=== PATIENT | male | born 1935 | race Caucasian/White ===

== ENCOUNTER 2022-06-19 22:04 | Inpatient (IN) ==
[2022-06-19 23:08] LABS: Urine Appearance Clear; Urine Color Yellow; Urine Specific Gravity 1.025 (1.005-1.030); Urine pH 5.5 (5.0-9.0)
[2022-06-19 23:09] LABS: Urine Bilirubin Negative (Negative); Urine Blood Trace (Lysed) (Negative); Urine Glucose Negative (Negative); Urine Ketones Negative (Negative); Urine Nitrite Negative (Negative); Urine Protein Negative (Negative); Urine Urobilinogen 1.0 (Negative) (Negative)
[2022-06-19 23:26] LABS: Urine Bacteria Absent (Absent); Urine Red Blood Cell 1+(3-5/hpf) (Absent); Urine Squamous Epithelial Cell Present (Absent); Urine White Blood Cell 3+(>20/hpf) (Absent)
[2022-06-20 00:08] LABS: ABS Basophils 0.1 10^3/ul (0-0.2); ABS Eosinophils 0.3 10^3/ul (0-0.6); ABS Lymphocytes 1.7 10^3/ul (1.0-4.8); ABS Monocytes 0.8 10^3/ul (0-0.8); ABS Neutrophils 7.2 10^3/ul (1.5-7.7); Eosinophil % 3.1 %; Hematocrit 42 % (42-52); Hemoglobin 13.9 g/dL (14.0-18.0); Lymphocyte % 16.5 %; Mean Corpuscular HGB Conc 33 g/dL (31-36); Mean Corpuscular Hemoglobin 29 pg (27-31); Mean Corpuscular Volume 89 fL (80-94); Nucleated Red Blood Cells % 0.1; Platelet Count 309 10^3/uL (150-450); Red Blood Count 4.76 10^6 /uL (4.18-5.48); Red Cell Distribution Width 15 % (10-15)
[2022-06-20 00:36] LABS: Albumin 3.7 g/dL (3.2-5.2); Albumin/Globulin Ratio 1.5 (1-3); C Reactive Protein 18.68 mg/L (<8.01); Calcium 10.3 mg/dL (8.6-10.3); Globulin 2.4 g/dL (2-4); Potassium 4.4 mmol/L (3.5-5.0); Total Bilirubin 0.7 mg/dL (0.2-1.0); Total Protein 6.1 g/dL (6.4-8.9); eGFR CKD-EPI 47.6 (>60)
[2022-06-20 02:37] LABS: Magnesium 1.9 mg/dL (1.9-2.7)
[2022-06-20 02:53] LABS: TSH Ultra Thyroid Stim Horm 1.65 mcIU/mL (0.34-5.60)
[2022-06-20] MEDS ORDERED: Lactated Ringers 1000 ml BAG 1,000 ML IV ONE (03:14)
[2022-06-20] MEDS ORDERED: Cyanocobalamin INJ 1,000 MCG/ML VIAL 1 ML VIAL IM ONE (03:21)
[2022-06-20] MEDS: cefTRIAXone 1 gm/50 mL D5W 1 GM/50 ML BAG IV SCH (03:32)
[2022-06-20] MEDS ORDERED: Dextrose 50% Syringe 50 ml 25 GM/50 ML SYRINGE IV PUSH PRN (03:36)
[2022-06-20] MEDS: Enoxaparin 40 MG/0.4 ML SYR SUBCUT SCH (03:55)
[2022-06-20] MEDS ORDERED: Lactated Ringers 1000 ml BAG 1,000 ML IV SCH (04:00)
[2022-06-20] MEDS: Cholecalciferol (VIT D3) 1,000 unit TAB PO SCH (09:12)
[2022-06-20 09:15] LABS: Blood Urea Nitrogen 17 mg/dL (6-24); CO2 Carbon Dioxide 23 mmol/L (22-32); Calcium 9.6 mg/dL (8.6-10.3); Chloride 105 mmol/L (101-111); Glucose 111 mg/dL (70-100); Sodium 136 mmol/L (135-145); eGFR CKD-EPI 60.5 (>60)
[2022-06-20 09:21] LABS: Anion Gap 8 mmol/L (2-11)
[2022-06-20 09:25] LABS: PSA Screening Total 0.423 ng/mL (0-4.000)
[2022-06-20 10:32] LABS: Magnesium 1.7 mg/dL (1.9-2.7); Potassium Redraw 4.5 mmol/L (3.5-5.0)
[2022-06-20] MEDS: Senna TAB 8.6 mg TAB PO SCH ×2 (11:29→21:10)
[2022-06-20] MEDS: Polyethylene Glycol 3350 17 GM PACKET PO SCH (21:10)
[2022-06-21] MEDS: cefTRIAXone 1 gm/50 mL D5W 1 GM/50 ML BAG IV SCH (05:10)
[2022-06-21] MEDS: Enoxaparin 40 MG/0.4 ML SYR SUBCUT SCH (06:04)
[2022-06-21 06:27] LABS: ABS Basophils 0.1 10^3/ul (0-0.2); ABS Eosinophils 0.2 10^3/ul (0-0.6); ABS Lymphocytes 1.6 10^3/ul (1.0-4.8); ABS Monocytes 0.7 10^3/ul (0-0.8); ABS Neutrophils 7.1 10^3/ul (1.5-7.7); Eosinophil % 2.2 %; Hematocrit 41 % (42-52); Hemoglobin 14.2 g/dL (14.0-18.0); Lymphocyte % 16.7 %; Mean Corpuscular HGB Conc 35 g/dL (31-36); Mean Corpuscular Hemoglobin 31 pg (27-31); Mean Corpuscular Volume 88 fL (80-94); Mean Platelet Volume 7.3 fL (7.4-10.4); Platelet Count 280 10^3/uL (150-450); Red Cell Distribution Width 14 % (10-15); White Blood Count 9.7 10^3/uL (3.5-10.8)
[2022-06-21 06:59] LABS: Calcium 10.2 mg/dL (8.6-10.3); Potassium 4.5 mmol/L (3.5-5.0); eGFR CKD-EPI 64.4 (>60)
[2022-06-21] MEDS: Cholecalciferol (VIT D3) 1,000 unit TAB PO SCH (08:46)
[2022-06-21] MEDS: Senna TAB 8.6 mg TAB PO SCH ×2 (08:46→21:19)
[2022-06-21] MEDS: Polyethylene Glycol 3350 17 GM PACKET PO SCH ×2 (08:47→21:20)
[2022-06-22 05:22] LABS: ABS Basophils 0.1 10^3/ul (0-0.2); ABS Eosinophils 0.3 10^3/ul (0-0.6); ABS Lymphocytes 1.6 10^3/ul (1.0-4.8); ABS Monocytes 0.7 10^3/ul (0-0.8); Eosinophil % 3.3 %; Hematocrit 41 % (42-52); Hemoglobin 14.2 g/dL (14.0-18.0); Lymphocyte % 18.8 %; Mean Corpuscular HGB Conc 35 g/dL (31-36); Mean Corpuscular Hemoglobin 31 pg (27-31); Mean Corpuscular Volume 89 fL (80-94); Mean Platelet Volume 7.8 fL (7.4-10.4); Platelet Count 250 10^3/uL (150-450); Red Blood Count 4.62 10^6 /uL (4.18-5.48); Red Cell Distribution Width 15 % (10-15); White Blood Count 8.7 10^3/uL (3.5-10.8)
[2022-06-22] MEDS: Enoxaparin 40 MG/0.4 ML SYR SUBCUT SCH (05:34)
[2022-06-22] MEDS: cefTRIAXone 1 gm/50 mL D5W 1 GM/50 ML BAG IV SCH (05:35)
[2022-06-22 05:42] LABS: Calcium 10.3 mg/dL (8.6-10.3); eGFR CKD-EPI 61.1 (>60)
[2022-06-22 05:52] LABS: Potassium 4.4 mmol/L (3.5-5.0)
[2022-06-22] MEDS: Polyethylene Glycol 3350 17 GM PACKET PO SCH ×2 (07:59→20:56)
[2022-06-22] MEDS: Senna TAB 8.6 mg TAB PO SCH ×2 (08:00→20:55)
[2022-06-22] MEDS: Cholecalciferol (VIT D3) 1,000 unit TAB PO SCH (08:00)
[2022-06-23 05:56] LABS: ABS Basophils 0.1 10^3/ul (0-0.2); ABS Eosinophils 0.3 10^3/ul (0-0.6); ABS Lymphocytes 1.6 10^3/ul (1.0-4.8); ABS Monocytes 0.7 10^3/ul (0-0.8); ABS Neutrophils 5.6 10^3/ul (1.5-7.7); Eosinophil % 3.2 %; Hematocrit 40 % (42-52); Hemoglobin 13.9 g/dL (14.0-18.0); Mean Corpuscular HGB Conc 35 g/dL (31-36); Mean Corpuscular Hemoglobin 31 pg (27-31); Mean Corpuscular Volume 89 fL (80-94); Mean Platelet Volume 7.3 fL (7.4-10.4); Platelet Count 283 10^3/uL (150-450); Red Blood Count 4.51 10^6 /uL (4.18-5.48); Red Cell Distribution Width 14 % (10-15); White Blood Count 8.2 10^3/uL (3.5-10.8)
[2022-06-23 06:10] LABS: Calcium 10.3 mg/dL (8.6-10.3); Potassium 4.1 mmol/L (3.5-5.0); eGFR CKD-EPI 57.5 (>60)
[2022-06-23] MEDS: Enoxaparin 40 MG/0.4 ML SYR SUBCUT SCH (06:16)
[2022-06-23] MEDS: cefTRIAXone 1 gm/50 mL D5W 1 GM/50 ML BAG IV SCH (06:16)
[2022-06-23] MEDS: Cholecalciferol (VIT D3) 1,000 unit TAB PO SCH (07:44)
[2022-06-23] MEDS: Polyethylene Glycol 3350 17 GM PACKET PO SCH (07:44)
[2022-06-23] MEDS: Senna TAB 8.6 mg TAB PO SCH (07:45)
[2022-06-23 11:22] VITALS: BP 126/89
== END 2022-06-23 14:15 | disposition home or self-care (01) | DRG 689 ==
LOC: EDHOLD 22:04 → ED 22:04 → EDHOLD 06-20 15:27 → MED 06-20 16:06 → SUATTDRO 06-21 08:10
PROVIDERS: ADMIT Internal Medicine; ATTEND Internal Medicine

== ENCOUNTER 2023-06-05 06:13 | Inpatient (IN) ==
[~2023-06-05 06:13] MED LIST: Buffered Lidocaine 1% SYRIN 1 ml INTRADERM ONE; Ertapenem 1 GM in NS 0.9% 50 ML BAG IVPB SCH; Lactated Ringers 1000 ml BAG 1,000 ML IV SCH; Scopolamine 1 mg/72hr PATCH TRANSDERM ONE
[2023-06-05] MEDS ORDERED: Bupivacaine 0.25% w/EPI 10 ML SDV ONE (06:39)
[2023-06-05] MEDS ORDERED: Scopolamine 1 mg/72hr PATCH ONE (06:39)
[2023-06-05] MEDS ORDERED: Iohexol 180 (CONTRAST) 10 ML SDV IV ONE (06:39)
[2023-06-05] MEDS ORDERED: Buffered Lidocaine 1% SYRIN 1 ml ONE (06:40)
[2023-06-05] MEDS ORDERED: Heparin 5000 UNITS/ML 1 mL VIAL ONE (06:40)
[2023-06-05] MEDS ORDERED: fentaNYL 100 mcg/2 ml 50 MCG/ML VIAL ONE (07:17)
[2023-06-05] MEDS ORDERED: Rocuronium 50 mg VIAL 10 mg/ml 5 ml VIAL (50 mg) ONE ×4 (07:17→12:14)
[2023-06-05] MEDS ORDERED: Lidocaine 2% PF 5 ML VIAL ONE (07:17)
[2023-06-05] MEDS ORDERED: Propofol 10 MG/ML 20 ML BTL ONE (07:17)
[2023-06-05 07:21] LABS: Rapid COVID-19 Molecular Undetected (Undetected)
[2023-06-05] MEDS ORDERED: Dexmedetomidine 200 mcg/2 ml 2 ml VIAL (200 mcg) ONE (07:21)
[2023-06-05] MEDS ORDERED: Midazolam 2 mg/2 ml VIAL 1 mg/ml 2 ml VIAL (2 mg) ONE (07:38)
[2023-06-05] MEDS ORDERED: Flumazenil 0.5 mg/5 ml 0.1 MG/ML 5 ml VIAL ONE (09:07)
[2023-06-05] MEDS ORDERED: hydrALAZINE 20 mg/ml 1 ML Vial IV ONE (10:33)
[2023-06-05] MEDS ORDERED: Sterile Water for Inj 10 ML ONE (10:56)
[2023-06-05] MEDS ORDERED: HYDROmorphone 1 MG/1 ML SYRINGE IV PRN (11:39)
[2023-06-05] MEDS ORDERED: fentaNYL 100 mcg/2 ml 50 MCG/ML VIAL IV PRN (11:39)
[2023-06-05] MEDS ORDERED: Ondansetron 4 mg VIAL 2 MG/ML 2 ml VIAL IV PRN ×2 (11:39→14:28)
[2023-06-05] MEDS ORDERED: Naloxone 0.4 mg VIAL 0.4 mg/ml 1 ml VIAL IV PRN (11:39)
[2023-06-05] MEDS ORDERED: HYDROmorphone 0.5 MG/0.5 ML SYRINGE ONE (12:29)
[2023-06-05] MEDS ORDERED: Ondansetron 4 mg VIAL 2 MG/ML 2 ml VIAL ONE (13:26)
[2023-06-05] MEDS ORDERED: HYDROmorphone 0.5 MG/0.5 ML SYRINGE IV SLOW PU PRN (14:42)
[2023-06-05] MEDS ORDERED: Dextrose 50% Syringe 50 ml 25 GM/50 ML SYRINGE IV PUSH PRN (15:17)
[2023-06-05] MEDS ORDERED: ROPIVACAINE 5 MG/ML 30 ML BTL (0.5%) ONE (16:46)
[2023-06-05] MEDS: Acetaminophen IV 1 GM/100ML 1,000 MG/100 ML BAG IV SCH ×2 (18:08→21:12)
[2023-06-05] MEDS ORDERED: Amoxicillin/Clavul 875/125 TAB (Augmentin 875 tab) PO SCH (21:00)
[2023-06-06] MEDS: Acetaminophen IV 1 GM/100ML 1,000 MG/100 ML BAG IV SCH ×4 (02:19→21:59)
[2023-06-06 06:45] LABS: ABS Lymphocytes 1.3 10^3/uL (1.0-4.8); ABS Neutrophils 10.5 10^3/uL (1.5-7.6); Eosinophil % 0.2 %; Hematocrit 39.9 % (38-53); Hemoglobin 13.5 g/dL (13.2-16.3); Lymphocyte % 9.9 %; Mean Corpuscular Hemoglobin 30.9 pg (27-33); Mean Corpuscular Hgb Conc 33.8 g/dL (31-36); Mean Corpuscular Volume 91.5 fL (80-97); Mean Platelet Volume 6.7 fL (7.5-11.2); Platelet Count 245 10^3/uL (150-450); Red Blood Count 4.36 10^6/uL (4.06-5.63); Red Cell Distribution Width 14.1 % (12-17); White Blood Count 12.9 10^3/uL (3.6-10.2)
[2023-06-06 07:00] LABS: Calcium 9.8 mg/dL (8.6-10.3); Creatinine, Serum 1.4 mg/dL (0.67-1.17); Potassium 4.2 mmol/L (3.5-5.0); eGFR CKD-EPI 49.3 (>60)
[2023-06-06] MEDS: Tiotropium Brom/Olodaterol MDI (ACUTE) INH SCH (07:58)
[2023-06-06] MEDS: Amoxicillin/Clavul 875/125 TAB (Augmentin 875 tab) PO SCH ×3 (08:29→21:56)
[2023-06-06] MEDS: Enoxaparin 40 MG/0.4 ML SYR SUBCUT SCH (12:25)
[2023-06-07] MEDS: Acetaminophen IV 1 GM/100ML 1,000 MG/100 ML BAG IV SCH ×4 (03:41→21:22)
[2023-06-07 06:50] LABS: Creatinine, Serum 1.37 mg/dL (0.67-1.17); Potassium 4.1 mmol/L (3.5-5.0); eGFR CKD-EPI 50.6 (>60)
[2023-06-07] MEDS: Tiotropium Brom/Olodaterol MDI (ACUTE) INH SCH ×2 (06:59→08:01)
[2023-06-07] MEDS: Amoxicillin/Clavul 875/125 TAB (Augmentin 875 tab) PO SCH ×2 (08:10→21:18)
[2023-06-07] MEDS: Enoxaparin 40 MG/0.4 ML SYR SUBCUT SCH (14:48)
[2023-06-08] MEDS: Acetaminophen IV 1 GM/100ML 1,000 MG/100 ML BAG IV SCH ×2 (02:39→08:40)
[2023-06-08 06:34] LABS: Creatinine, Serum 1.05 mg/dL (0.67-1.17); Potassium 4.2 mmol/L (3.5-5.0); eGFR CKD-EPI 69.6 (>60)
[2023-06-08] MEDS: Amoxicillin/Clavul 875/125 TAB (Augmentin 875 tab) PO SCH (08:39)
[2023-06-08] MEDS: Tiotropium Brom/Olodaterol MDI (ACUTE) INH SCH (08:55)
[2023-06-08] MEDS: Enoxaparin 40 MG/0.4 ML SYR SUBCUT SCH (12:12)
[2023-06-08 14:27] VITALS: BP 138/67
== END 2023-06-08 15:25 | disposition home or self-care (01) | DRG 661 ==
LOC: AA 06:13 → SSU 17:41
PROVIDERS: ADMIT Surgery; ATTEND Surgery

== ENCOUNTER 2024-05-04 13:59 | Observation (INO) ==
[2024-05-04] MEDS: Iodixanol (CONTRAST) 320 MG/ML 100 ML SDV IV ONE (14:23)
[2024-05-04 14:29] LABS: Hematocrit 39.9 % (38-53); Hemoglobin 13.3 g/dL (13.2-16.3); Mean Corpuscular Hemoglobin 28.7 pg (27-33); Mean Corpuscular Hgb Conc 33.4 g/dL (31-36); Mean Platelet Volume 7.3 fL (7.5-11.2); Platelet Count 346 10^3/uL (150-450); Red Blood Count 4.64 10^6/uL (4.06-5.63); Red Cell Distribution Width 13.5 % (12-17); White Blood Count 10.1 10^3/uL (3.6-10.2)
[2024-05-04 14:46] LABS: Activated Partial Thrombo Time 32.7 seconds (26.0-38.0); INR 1.04 (0.83-1.13)
[2024-05-04 15:01] LABS: ABS Basophils 0.1 10^3/uL (0.0-0.1); ABS Eosinophils 0.2 10^3/uL (0.0-0.5); ABS Lymphocytes 1.6 10^3/uL (1.0-4.8); ABS Monocytes 0.5 10^3/uL (0.0-1.1); ABS Neutrophils 7.7 10^3/uL (1.5-7.6); Eosinophil % 2.1 %; Lymphocyte % 15.3 %; RBC Morphology Normal (Normal)
[2024-05-04 15:05] LABS: Albumin 4.3 g/dL (3.2-5.2); Albumin/Globulin Ratio 1.8 (1-3); Calcium 10.9 mg/dL (8.6-10.3); Creatinine, Serum 1.33 mg/dL (0.67-1.17); Direct Bilirubin 0.1 mg/dL (0.03-0.18); Globulin 2.4 g/dL (2-4); HDL Cholesterol 40.1 mg/dL; Indirect Bilirubin 0.5 mg/dL (0.3-1.0); Potassium 4.8 mmol/L (3.5-5.0); Total Bilirubin 0.6 mg/dL (0.2-1.0); Total Protein 6.7 g/dL (6.4-8.9); eGFR CKD-EPI 52.1 (>60)
[2024-05-04 16:46] LABS: C Reactive Protein 1.27 mg/L (<8.01)
[2024-05-04 17:03] LABS: Urine Appearance Clear; Urine Bilirubin Negative (Negative); Urine Blood Negative (Negative); Urine Color Yellow; Urine Glucose Negative (Negative); Urine Ketones Negative (Negative); Urine Nitrite Negative (Negative); Urine Protein Trace (Negative); Urine Specific Gravity >1.050 (1.002-1.030); Urine Urobilinogen Negative (Negative)
[2024-05-04] MEDS ORDERED: Dextrose 50% Syringe 50 ml 25 GM/50 ML SYRINGE IV PUSH PRN (17:53)
[2024-05-04] MEDS: Enoxaparin 40 MG/0.4 ML SYR SUBCUT SCH (18:14)
[2024-05-04] MEDS: Lactated Ringers 1000 ml BAG 1,000 ML IV SCH (18:15)
[2024-05-04 18:24] LABS: TSH Ultra Thyroid Stim Horm 1.42 mcIU/mL (0.34-5.60)
[2024-05-05 06:00] LABS: Calcium 10.3 mg/dL (8.6-10.3); Creatinine, Serum 1.12 mg/dL (0.67-1.17); Magnesium 1.7 mg/dL (1.9-2.7); Potassium 4.5 mmol/L (3.5-5.0)
[2024-05-05] MEDS: Aspirin EC 81 mg TAB.EC (enteric coated) PO SCH (07:50)
[2024-05-05] MEDS: Cholecalciferol (VIT D3) 1,000 unit TAB PO SCH (07:50)
[2024-05-05] MEDS: CMC:FLUTICAS/UMECLI/VILANT 100-62.5-25 MDI (NF) INH SCH (07:51)
[2024-05-05] MEDS ORDERED: Magnesium Sulfate 2 gm BAG 2 GM/50 ML BAG IVPB ONE (08:23)
[2024-05-05] MEDS: Magnesium Sulfate IV 1GM/100ML 1 GM/100 ML BAG IV ONE (09:23)
[2024-05-05] MEDS: Sulfur Hexaflouride MICROSPHR 25 MG VIAL IV ONE (11:20)
[2024-05-05 14:08] VITALS: BP 138/71
== END 2024-05-05 17:08 | disposition home or self-care (01) ==
LOC: ED 13:59 → EDHOLD 13:59 → MEDTELE 16:40
PROVIDERS: ADMIT Hospitalist; ATTEND Hospitalist